=== PATIENT | male | born 1945 | race Caucasian/White ===

== ENCOUNTER 2017-01-26 14:20 | Emergency (ER) | payer OTHER, MEDICARE ==
[~2017-01-26] VITALS: Ht 177.8 cm; Wt 95.0 kg
[~2017-01-26 14:20] MED LIST: ALPR.25 PO; AMBI10TA PO; ASPI325T PO; BENA1TAB42 PO; CELE200C PO; HYDR-3535 PO; META800T81 PO; ROSU5 PO; VALT1TAB PO
[2017-01-26 14:31] VITALS: BP 171/92; PULSE 65; RESP 18; TEMP 98.2; O2SAT 97
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
[2017-01-26] MEDS ORDERED: BENA20TA4 PO (15:06)
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
== END 2017-01-26 16:46 | disposition home or self-care (01) ==
LOC: PHEFT 14:20
DX: S16.1XXA Strain of muscle, fascia and tendon at neck level, initial encounter (principal); Z95.9 Presence of cardiac and vascular implant and graft, unspecified; V43.52XA Car driver injured in collision with other type car in traffic accident, initial encounter; Y92.488 Other paved roadways as the place of occurrence of the external cause; Y93.9 Activity, unspecified; Y99.9 Unspecified external cause status; I10 Essential (primary) hypertension; E78.00 Pure hypercholesterolemia, unspecified
CPT/HCPCS: 72050; 99284

== ENCOUNTER 2018-05-19 11:59 | Inpatient (IN) ==
[2018-05-19 12:51] LABS: Baso % (Auto) 0.4 % (0.0-2.0); Eos % (Auto) 0.3 % (0.0-4.0); Hematocrit 38.9 % (39.0-51.0); Lymph % (Auto) 13.6 % (9.0-44.0); Mean Corpuscular HGB Conc 33.5 % (32.0-36.0); Mean Corpuscular Hemoglobin 31.5 pg (27.0-34.0); Mean Corpuscular Volume 94.1 fL (80.0-100.0); Mean Platelet Volume 6.1 fL (7.0-11.0); Mono # (Auto) 0.6 th/mm3 (0.0-0.9); Mono % (Auto) 8.1 % (0.0-8.0); Neut # (Auto) 5.5 th/mm3 (1.8-7.7); Neut % (Auto) 77.6 % (16.0-70.0); Platelet Count 363 th/mm3 (150-450); Red Blood Count 4.14 mil/mm3 (4.50-5.90); Red Cell Distribution Width 12.4 % (11.6-17.2); White Blood Count 7.1 th/mm3 (4.0-11.0)
[2018-05-19 12:56] LABS: ABG Base Excess 2.2 mmol/L (-2-2); ABG PCO2 44 mmHg (38-42); ABG PO2 82 mmHg (61-120)
[2018-05-19 13:02] LABS: Chloride 90 meq/L (98-107); Sodium 126 meq/L (136-145)
[2018-05-19 13:05] LABS: Albumin 3.4 g/dL (3.4-5.0); Anion Gap 6 meq/L (5-15); Calcium 8.3 mg/dL (8.5-10.1); Glucose,Random 197 mg/dL (74-106)
[2018-05-19 13:06] LABS: Blood Urea Nitrogen 8 mg/dL (7-18)
[2018-05-19 13:08] LABS: Alanine Aminotransferase 19 U/L (12-78); Aspartate Aminotransferase 11 U/L (15-37)
[2018-05-19 13:09] LABS: Glomerular Filtration Rate 76 mL/min (>89)
--- NOTE | 2018-05-19 13:09 | ED ---
HPI General Chief complaint: Medical Clearance Stated complaint: Brain scan/blood work sent by dr Salcido Time Seen by Provider: 05/19/18 12:25 Source: patient Mode of arrival: ambulatory Limitations: no limitations History of Present Illness HPI narrative: Is a 72-year-old male presents to the emergency department referred in from Dr. Salcido's office apparently for sleepiness and daytime somnolence and generalized weakness. Patient reports that he has been falling asleep easily, and very drowsy during the day, ongoing for couple weeks. Patient is on multiple sedating medications including 10 mg oxycodone 4 times per day, 0.25 mg Xanax 4 times per day, Skelaxin up to 3 times per day but he states he really only takes this in the evening and sometimes at night if he wakes up with pain, and Ambien which he takes most nights. No history of sleep apnea. states that he does sometimes gurgle in his sleep and she tells him the role records she is worried about his breathing, but no snoring or abrupt waking up or other similar symptoms. Patient denies any recent illness. No change in urination. No history of kidney problems. Was seen at the office today because he has been falling asleep so much and apparently fell asleep in the office and so Dr. Salcido sent him to the ED for evaluation. Related Data Home Medications Medication Instructions Recorded Confirmed alprazolam [Xanax] 0.25 mg PO QID 05/19/18 05/19/18 aspirin 81 mg PO DAILY 05/19/18 05/19/18 benazepril-hydrochlorothiazide 1 tab PO DAILY 05/19/18 05/19/18 celecoxib [Celebrex] 200 mg PO DAILY 05/19/18 05/19/18 duloxetine [Cymbalta] 60 mg PO DAILY 05/19/18 05/19/18 hydrocodone-acetaminophen 1 tab PO Q6H PRN 05/19/18 05/19/18 metaxalone [Skelaxin] 800 mg PO Q6HR PRN 05/19/18 05/19/18 rosuvastatin [Crestor] 5 mg PO HS 05/19/18 05/19/18 valacyclovir [Valtrex] 1,000 mg PO DAILY 05/19/18 05/19/18 zolpidem [Ambien] 10 mg PO HS 05/19/18 05/19/18 Allergies Allergy/AdvReac Type Severity Reaction Status Date / Time No Known Allergies Allergy Unverified 05/19/18 12:12 Review of Systems ROS Unobtainable All other systems reviewed negative except as stated in HPI [facility] Medical History Medical History Hx of malignant melanoma of skin (Acute) Depression (Acute) High cholesterol (Acute) Hypertension (Acute) Surgical History Surgical History Hx of prostatectomy (Acute) Hx of vascular surgery (Acute) Hx of cardiac cath (Acute) History of hernia surgery (Acute) History of back surgery (Acute) H/O heart artery stent (Acute) Social History Social History Substance History: No History of Abuse Second Hand Smoke Exposure: No Smoking Status: Former smoker How Often Do You Have a Drink Containing Alcohol: Never Recent Travel in [facility] within the Last 8 Weeks: No Recent Out of Country Travel within the Last 8 Weeks: No Immunization History Tetanus Immunization: Unsure Hx Influenza Vaccine This Season: Yes Exam Narrative Exam Narrative: GENERAL: This 72-year-old man, nontoxic, no acute distress. SKIN: Focused skin assessment warm/dry. HEAD: Atraumatic. Normocephalic. EYES: Pupils equal and round. No scleral icterus. No injection or drainage. ENT: No nasal bleeding or discharge. Mucous membranes pink and moist. NECK: Trachea midline. No JVD. CARDIOVASCULAR: Regular rate and rhythm. No murmur appreciated. RESPIRATORY: No accessory muscle use. Clear to auscultation. Breath sounds equal bilaterally. GASTROINTESTINAL: Abdomen soft, non-tender, nondistended. Hepatic and splenic margins not palpable. MUSCULOSKELETAL: No obvious deformities. No clubbing. No cyanosis. No edema. NEUROLOGICAL: Minimally sedated at this point. No obvious cranial nerve deficits. Motor grossly within normal limits. Normal speech. Course Initial Documented Vital Signs Temperature 98.4 F 05/19/18 12:12 Pulse Rate 93 H 05/19/18 12:12 Respiratory Rate 12 05/19/18 12:12 Blood Pressure 132/79 05/19/18 12:12 Pulse Oximetry 97 05/19/18 12:12 Last Documented Vital Signs Temperature 98.4 F 05/19/18 12:49 Pulse Rate 84 05/19/18 13:11 Respiratory Rate 16 05/19/18 12:49 Blood Pressure 132/79 05/19/18 12:49 Pulse Oximetry 98 05/19/18 13:11 Medical Decision Making MDM Narrative Medical decision making narrative: 72-year-old male presents emerged department with sedation and daytime somnolence. He really looks pretty well. My suspicion is this is multifactorial. I think his meds have to be contributing. Patient is reluctant to accept this as he been on the medication for quite some time and does not want to wean them down. Renal failure could contribute, anemia could contribute. Sleep apnea seems also very possible, may need further evaluation as an outpatient. Will check labs, thyroid, cell count, chemistries, discussed with Dr. Salcido. Lab Data Result diagrams: 05/19/18 12:40 05/19/18 12:40 Lab Results 05/19/18 05/19/18 05/19/18 Range/Units 12:40 12:40 12:40 CBC w Diff Auto diff final WBC 7.1 (4.0-11.0) th/mm3 RBC 4.14 L (4.50-5.90) mil/mm3 Hgb 13.0 (13.0-17.0) gm/dL Hct 38.9 L (39.0-51.0) % MCV 94.1 (80.0-100.0) fL MCH 31.5 (27.0-34.0) pg MCHC 33.5 (32.0-36.0) % RDW 12.4 (11.6-17.2) % Plt Count 363 (150-450) th/mm3 MPV 6.1 L (7.0-11.0) fL Neut % (Auto) 77.6 H (16.0-70.0) % Lymph % (Auto) 13.6 (9.0-44.0) % [place] % (Auto) 8.1 H (0.0-8.0) % Eos % (Auto) 0.3 (0.0-4.0) % Baso % (Auto) 0.4 (0.0-2.0) % Neut # (Auto) 5.5 (1.8-7.7) th/mm3 Lymph # (Auto) 1.0 (1.0-4.8) th/mm3 Izard # (Auto) 0.6 (0.0-0.9) th/mm3 Eos # (Auto) 0.0 (0.0-0.4) th/mm3 Baso # (Auto) 0.0 (0.0-0.2) th/mm3 WBC Differential . Differential Comment . Puncture Site Patient Temperature O2 Saturation (90-100) % ABG pH (7.380-7.420) ABG pCO2 (38-42) mmHg ABG pO2 (61-120) mmHg ABG HCO3 (22-26) mmol/L ABG O2 Content (12.0-20.0) Vol % ABG Base Excess (-2-2) mmol/L ABG Methemoglobin (0-2) % Grant Test Hemoglobin (12.0-16.0) G/DL Carboxyhemoglobin (0-4) % O2 Delivery Device Inspired O2 % Critical Value Sodium 126 L (136-145) meq/L Potassium 4.0 (3.5-5.1) meq/L Chloride 90 L (98-107) meq/L Carbon Dioxide 30.0 (21.0-32.0) meq/L Anion Gap 6 (5-15) meq/L BUN 8 (7-18) mg/dL Creatinine 0.97 (0.60-1.30) mg/dL Estimated GFR 76 L (>89) mL/min Random Glucose 197 H (74-106) mg/dL Calcium 8.3 L (8.5-10.1) mg/dL Total Bilirubin 0.3 (0.2-1.0) mg/dL AST 11 L (15-37) U/L ALT 19 (12-78) U/L Alkaline Phosphatase 60 (45-117) U/L Total Protein 6.5 (6.4-8.2) g/dL Albumin 3.4 (3.4-5.0) g/dL TSH 0.573 (0.358-3.740) uIU/mL Ur Collection Type Urine Color (Yellw/Straw) Urine Clarity (Clear) Urine pH (5.0-8.5) Ur Specific [place] (1.002-1.035) Urine Protein (Neg-Trace) mg/dL Urine Glucose (UA) (Negative) mg/dL Urine Ketones (Negative) mg/dL Urine Occult Blood (Negative) Urine Nitrate (Negative) Urine Bilirubin (Negative) Urine Urobilinogen (Less than 2) mg/dL Ur Leukocyte Esterase (Negative) Urine RBC (0-3) /hpf Ur Squamous Epith Cells (0-5) /hpf Ur Transition Epith Cell (None) /hpf Amorphous Sediment (None) /hpf Micro UA Comment Urine Culture Comments Urine Collection Time hours 05/19/18 05/19/18 Range/Units 12:50 13:17 CBC w Diff WBC (4.0-11.0) th/mm3 RBC (4.50-5.90) mil/mm3 Hgb (13.0-17.0) gm/dL Hct (39.0-51.0) % MCV (80.0-100.0) fL MCH (27.0-34.0) pg MCHC (32.0-36.0) % RDW (11.6-17.2) % Plt Count (150-450) th/mm3 MPV (7.0-11.0) fL Neut % (Auto) (16.0-70.0) % Lymph % (Auto) (9.0-44.0) % Izard % (Auto) (0.0-8.0) % Eos % (Auto) (0.0-4.0) % Baso % (Auto) (0.0-2.0) % Neut # (Auto) (1.8-7.7) th/mm3 Lymph # (Auto) (1.0-4.8) th/mm3 [place] # (Auto) (0.0-0.9) th/mm3 Eos # (Auto) (0.0-0.4) th/mm3 Baso # (Auto) (0.0-0.2) th/mm3 WBC Differential Differential Comment Puncture Site Right radial Patient Temperature 98.6 O2 Saturation 94 (90-100) % ABG pH 7.40 (7.380-7.420) ABG pCO2 44 H (38-42) mmHg ABG pO2 82 (61-120) mmHg ABG HCO3 27 H (22-26) mmol/L ABG O2 Content 16.7 (12.0-20.0) Vol % ABG Base Excess 2.2 H (-2-2) mmol/L ABG Methemoglobin 1.1 (0-2) % Grant Test Present Hemoglobin 12.6 (12.0-16.0) G/DL Carboxyhemoglobin 1.4 (0-4) % O2 Delivery Device Room air Inspired O2 21 % Critical Value No Sodium (136-145) meq/L Potassium (3.5-5.1) meq/L Chloride (98-107) meq/L Carbon Dioxide (21.0-32.0) meq/L Anion Gap (5-15) meq/L BUN (7-18) mg/dL Creatinine (0.60-1.30) mg/dL Estimated GFR (>89) mL/min Random Glucose (74-106) mg/dL Calcium (8.5-10.1) mg/dL Total Bilirubin (0.2-1.0) mg/dL AST (15-37) U/L ALT (12-78) U/L Alkaline Phosphatase (45-117) U/L Total Protein (6.4-8.2) g/dL Albumin (3.4-5.0) g/dL TSH (0.358-3.740) uIU/mL Ur Collection Type Clean catch Urine Color Yellow (Yellw/Straw) Urine Clarity Clear (Clear) Urine pH 6.5 (5.0-8.5) Ur Specific [place] Less/equal 1.005 (1.002-1.035) Urine Protein Negative (Neg-Trace) mg/dL Urine Glucose (UA) Negative (Negative) mg/dL Urine Ketones Negative (Negative) mg/dL Urine Occult Blood Trace (Negative) Urine Nitrate Negative (Negative) Urine Bilirubin Negative (Negative) Urine Urobilinogen 0.2 (Less than 2) mg/dL Ur Leukocyte Esterase Negative (Negative) Urine RBC 0-3 (0-3) /hpf Ur Squamous Epith Cells 0-5 (0-5) /hpf Ur Transition Epith Cell 1-5 H (None) /hpf Amorphous Sediment Few H (None) /hpf Micro UA Comment Culture not ind Urine Culture Comments Culture not ind Urine Collection Time 1317 hours Discharge Plan Discharge Disposition Patient Disposition: 30 Still Patient Physicians Team ED Provider: Adolfo Rosas Primary Care Provider: Andry Salcido Rxs /Orders / Referrals /Forms Prescriptions: No Action alprazolam [Xanax] 0.25 mg Tablet 0.25 mg PO QID RF: 0 aspirin 81 mg Tablet,Chewable 81 mg PO DAILY RF: 0 celecoxib [Celebrex] 200 mg Capsule 200 mg PO DAILY RF: 0 benazepril-hydrochlorothiazide 20-25 mg Tablet 1 tab PO DAILY RF: 0 rosuvastatin [Crestor] 5 mg Tablet 5 mg PO HS RF: 0 valacyclovir [Valtrex] 1 gram Tablet 1,000 mg PO DAILY RF: 0 hydrocodone-acetaminophen 10-325 mg Tablet 1 tab PO Q6H PRN (Reason: Muscle Pain) RF: 0 zolpidem [Ambien] 10 mg Tablet 10 mg PO HS RF: 0 metaxalone [Skelaxin] 800 mg Tablet 800 mg PO Q6HR PRN (Reason: Pain) RF: 0 duloxetine [Cymbalta] 60 mg Capsule,Delayed Release(Dr/Ec) 60 mg PO DAILY RF: 0 Discharge Interventions Interventions: Vital Signs Last Done: 05/19/18 12:25 Status ED Status: Ready for Discharge
[2018-05-19 13:10] LABS: Total Protein 6.5 g/dL (6.4-8.2)
[2018-05-19 13:11] LABS: Alkaline Phosphatase 60 U/L (45-117)
[2018-05-19 13:27] LABS: Bilirubin,Urine Negative (Negative); Clarity,Urine Clear (Clear); Color,Urine Yellow (Yellw/Straw); Glucose,Urine (UA) Negative (Negative); Leukocyte Esterase,Urine Negative (Negative); Nitrite,Urine Negative (Negative); PH,Urine 6.5 (5.0-8.5); Specific Gravity,Urine Less/Equal 1.005 (1.002-1.035); Urobilinogen,Urine 0.2 mg/dL (Less than 2)
[2018-05-19 13:38] LABS: Amorphous Sediment,Urine Few /hpf; Collection Time,Urine 1317 hours; RBC,Urine 0-3 /hpf (0-3); Squamous Epithelial Cell,Urine 0-5 /hpf (0-5)
[2018-05-19] MEDS ORDERED: Acetaminophen 325 MG Tablet PO PRN (15:39)
--- NOTE | 2018-05-19 16:05 | P.HP ---
History of Present Illness Primary Care Physician: Andry Salcido MD History of Present Illness: 72-year-old male with a history of coronary artery disease and multiple disc herniations. He presents following 2 days of constant hypersomnolence associated with a mild headache. He has had gradually worsening hypersomnolence for the last 2 weeks leading up to this point. 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 He states that he cut back on his pain medications recently due to the hypersomnolence. He reports that he had a non-traumatic fall in the shower 1-1/2 weeks ago. He had a traumatic fall one year ago. He did have a similar episode of fatigue when he had a urinary tract infection a few years ago , but on this current admission his urine reports is clean. His chronic pain management includes multiple steroid and lidocaine injections into the lower back on a monthly basis. Inpatient Certification: I certify that the inpatient services were ordered in accordance with Medicare regulations governing the order. This includes certification that hospital inpatient services are reasonable and necessary and in the case of services not specified as inpatient-only under 42 CFR 419.22(n), that they are appropriately provided as inpatient services in accordance to with the 2-midnight benchmark under 43 CFR 412.3(e) Estimated Total Length of Stay (Days): 3 Plans for Post Hospital Care: Home Review of Systems Constitutional: Reports headache(s), Reports lack of energy, Reports weakness, Denies chills, Denies fever(s), Denies malaise, Denies night sweats, Denies weight gain, Denies weight loss Eyes: Denies blind spots, Denies blurry vision, Denies bulging eyes, Denies change in vision, Denies double vision Ears, Nose, Mouth, and Throat: Reports headache(s), Denies difficulty swallowing , Denies dizziness, Denies sinus pain, Denies sinus pressure, Denies sore throat Cardiovascular: Denies chest pain, Denies fainting, Denies fast heart rate, Denies irregular heart rhythm, Denies leg swelling, Denies lightheadedness Respiratory: Reports snoring, Denies change in phlegm color, Denies chest congestion, Denies cough, Denies excessive phlegm production, Denies pain on inspiration, Denies shortness of breath, Denies shortness of breath with activity Gastrointestinal: Denies abdominal pain, Denies belching, Denies black, tarry stools, Denies bright, red blood in stools Genitourinary: Denies blood in urine, Denies decreased urination, Denies difficulty urinating Musculoskeletal: Reports back pain, Reports muscle weakness, Denies abnormal walking Skin/Breast: Denies acne, Denies bleeding lesions, Denies boil, Denies breast swelling, Denies breast skin changes, Denies breast pain, Denies breast lump, Denies change in breast shape, Denies change in hair, Denies change in skin color, Denies changing lesions, Denies dry skin, Denies excessive hair growth, Denies hair loss, Denies itching, Denies lesions, Denies nail changes, Denies new lesions, Denies nipple discharge, Denies non-healing lesions, Denies redness , Denies sensitivity to light, Denies rash, Denies skin pain, Denies skin ulcer , Denies sores, Denies stretch rogers, Denies unusual bruising, Denies wounds, Denies yellowing of the skin, Denies other Neurologic: Reports frequent falls, Denies abnormal hearing, Denies abnormal movements, Denies abnormal speech, Denies localized weakness, Denies loss of vision, Denies memory loss Psychiatric: Reports abnormal sleep pattern, Denies behavioral changes, Denies change in appetite, Denies confusion, Denies depression, Denies difficulty concentrating, Denies hopelessness, Denies irritability, Denies memory loss, Denies mood swings, Denies panic attacks Endocrine: Denies cold intolerance, Denies excessive sweating, Denies flushing, Denies heat intolerance, Denies increased hunger, Denies increased thirst, Denies increased urination, Denies rapid, pounding, or irregular heartbeat PMFSH - History History Provided By: Patient, Family Member - Medical History Medical History: Medical History (Last Updated 05/19/18 @ 13:06 by Gabbie Bryson RN) Hx of malignant melanoma of skin (Acute) Depression (Acute) High cholesterol (Acute) Hypertension (Acute) - Surgical History Surgical History: Surgical History (Last Updated 05/19/18 @ 13:43 by Florence Toledo RN) Hx of prostatectomy (Acute) Hx of vascular surgery (Acute) Hx of cardiac cath (Acute) History of hernia surgery (Acute) History of back surgery (Acute) H/O heart artery stent - Family History Family History: Family History (Last Updated 05/19/18 @ 15:59 by Dani Kasper MD) Other Family history of acute myocardial infarction - Tobacco History Second Hand Smoke Exposure: No Tobacco Use In Past 30 Days: No Smoking Status: Former smoker - Alcohol History How Often Do You Have a Drink Containing Alcohol: Never - Substance Use History Substance History: No History of Abuse - Travel History Recent Travel in the [place] Within the Last 8 Weeks: No Recent Travel Out of the Country Within the Last 8 Weeks: No - Immunization History Tetanus Immunization: Unsure Hx Influenza Vaccine This Season: Yes Medications and Allergies Active Medications: Active Medications Acetaminophen (Tylenol) 650 mg PO Q4H PRN PRN Reason: Temp > 100.4 Hydrocodone Bitart/Acetaminophen ([place] 10/325) 1 tab PO Q6H PRN PRN Reason: Muscle Pain Alprazolam (Xanax) 0.25 mg PO QID TI Enoxaparin Sodium (Lovenox Inj) 40 mg SQ Q24H TI Sodium Chloride (Ns Inj) 1,000 mls @ 75 mls/hr IV.CONT .[id number] [facility] Non-Formulary Medication (Benazepril-Hydrochlorothiazide [Benazepril- Hydrochlorothiazide]) 1 tab PO DAILY TI Ondansetron HCl (Zofran Inj) 4 mg IV.PUSH Q6H PRN PRN Reason: NAUSEA OR VOMITING Sennosides (Senokot) 17.2 mg PO Q12H PRN PRN Reason: Moderate Constipation Sodium Chloride (Ns Flush) 2 ml IV.FLUSH PRN PRN PRN Reason: FLUSH AFTER USING IV ACCESS Valacyclovir HCl (Valtrex) 1,000 mg PO DAILY TI Allergies Allergy/AdvReac Type Severity Reaction Status Date / Time No Known Allergies Allergy Unverified 05/19/18 12:12 Home Medications Medication Instructions Recorded Confirmed Type alprazolam [Xanax] 0.25 mg PO QID 05/19/18 05/19/18 History aspirin 81 mg PO DAILY 05/19/18 05/19/18 History benazepril-hydrochlorothiazide 1 tab PO DAILY 05/19/18 05/19/18 History celecoxib [Celebrex] 200 mg PO DAILY 05/19/18 05/19/18 History duloxetine [Cymbalta] 60 mg PO DAILY 05/19/18 05/19/18 History hydrocodone-acetaminophen 1 tab PO Q6H PRN 05/19/18 05/19/18 History metaxalone [Skelaxin] 800 mg PO Q6HR PRN 05/19/18 05/19/18 History rosuvastatin [Crestor] 5 mg PO HS 05/19/18 05/19/18 History valacyclovir [Valtrex] 1,000 mg PO DAILY 05/19/18 05/19/18 History zolpidem [Ambien] 10 mg PO HS 05/19/18 05/19/18 History Exam Vital signs: Vital Signs 05/19/18 12:12 05/19/18 12:25 05/19/18 12:49 Temperature 98.4 F 98.4 F Pulse Rate 93 H 93 H 93 H Respiratory Rate 12 18 16 Blood Pressure 132/79 146/82 H 132/79 Pulse Oximetry 97 99 98 05/19/18 13:11 05/19/18 15:50 Temperature Pulse Rate 84 Respiratory Rate Blood Pressure Pulse Oximetry 98 96 Intake & Output 05/18/18 05/19/18 05/19/18 18:59 06:59 18:59 Weight 90 kg Narrative: GENERAL: Alert and oriented 3, well-nourished, hypersomnolent SKIN: Warm and dry. HEAD: Atraumatic. Normocephalic. EYES: Pupils equal and round. No scleral icterus. No injection or drainage. ENT: No nasal bleeding or discharge. Mucous membranes pink and moist. NECK: Trachea midline. No JVD. CARDIOVASCULAR: Regular rate and rhythm. No murmurs RESPIRATORY: No accessory muscle use. Clear to auscultation. Breath sounds equal bilaterally. GASTROINTESTINAL: Abdomen soft, non-tender, nondistended. Hepatic and splenic margins not palpable. MUSCULOSKELETAL: Extremities without clubbing, cyanosis, or edema. No obvious deformities. Negative Homans sign NEUROLOGICAL: Awake and alert. No obvious cranial nerve deficits. Motor grossly within normal limits. Five out of 5 muscle strength in the arms and legs. Normal speech. PSYCHIATRIC: Appropriate mood and affect; insight and judgment normal. Results - Labs CBC & Chem 7: 05/19/18 12:40 05/19/18 12:40 Labs: Laboratory Results - last 24 hr 05/19/18 05/19/18 05/19/18 12:40 12:40 12:40 CBC w Diff Auto diff final WBC 7.1 RBC 4.14 L Hgb 13.0 Hct 38.9 L MCV 94.1 MCH 31.5 MCHC 33.5 RDW 12.4 Plt Count 363 MPV 6.1 L Neut % (Auto) 77.6 H Lymph % (Auto) 13.6 Barber % (Auto) 8.1 H Eos % (Auto) 0.3 Baso % (Auto) 0.4 Neut # (Auto) 5.5 Lymph # (Auto) 1.0 Barber # (Auto) 0.6 Eos # (Auto) 0.0 Baso # (Auto) 0.0 WBC Differential . Differential Comment . Puncture Site Patient Temperature O2 Saturation ABG pH ABG pCO2 ABG pO2 ABG HCO3 ABG O2 Content ABG Base Excess ABG Methemoglobin Grant Test Hemoglobin Carboxyhemoglobin O2 Delivery Device Inspired O2 Critical Value Sodium 126 L Potassium 4.0 Chloride 90 L Carbon Dioxide 30.0 Anion Gap 6 BUN 8 Creatinine 0.97 Estimated GFR 76 L Random Glucose 197 H Calcium 8.3 L Total Bilirubin 0.3 AST 11 L ALT 19 Alkaline Phosphatase 60 Total Protein 6.5 Albumin 3.4 TSH 0.573 Ur Collection Type Urine Color Urine Clarity Urine pH Ur Specific [place] Urine Protein Urine Glucose (UA) Urine Ketones Urine Occult Blood Urine Nitrate Urine Bilirubin Urine Urobilinogen Ur Leukocyte Esterase Urine RBC Ur Squamous Epith Cells Ur Transition Epith Cell Amorphous Sediment Micro UA Comment Urine Culture Comments Urine Collection Time 05/19/18 05/19/18 12:50 13:17 CBC w Diff WBC RBC Hgb Hct MCV MCH MCHC RDW Plt Count MPV Neut % (Auto) Lymph % (Auto) Barber % (Auto) Eos % (Auto) Baso % (Auto) Neut # (Auto) Lymph # (Auto) Barber # (Auto) Eos # (Auto) Baso # (Auto) WBC Differential Differential Comment Puncture Site Right radial Patient Temperature 98.6 O2 Saturation 94 ABG pH 7.40 ABG pCO2 44 H ABG pO2 82 ABG HCO3 27 H ABG O2 Content 16.7 ABG Base Excess 2.2 H ABG Methemoglobin 1.1 Grant Test Present Hemoglobin 12.6 Carboxyhemoglobin 1.4 O2 Delivery Device Room air Inspired O2 21 Critical Value No Sodium Potassium Chloride Carbon Dioxide Anion Gap BUN Creatinine Estimated GFR Random Glucose Calcium Total Bilirubin AST ALT Alkaline Phosphatase Total Protein Albumin TSH Ur Collection Type Clean catch Urine Color Yellow Urine Clarity Clear Urine pH 6.5 Ur Specific [place] Less/equal 1.005 Urine Protein Negative Urine Glucose (UA) Negative Urine Ketones Negative Urine Occult Blood Trace Urine Nitrate Negative Urine Bilirubin Negative Urine Urobilinogen 0.2 Ur Leukocyte Esterase Negative Urine RBC 0-3 Ur Squamous Epith Cells 0-5 Ur Transition Epith Cell 1-5 H Amorphous Sediment Few H Micro UA Comment Culture not ind Urine Culture Comments Culture not ind Urine Collection Time 1317 Caprini VTE Risk Assessment Caprini VTE Risk Assessment: Moderate/High Risk (score >= 2) Caprini Risk Assessment Model: Point Value = 1 Point Value = 2 Point Value = 3 Point Value = 5 Age 41-60 Minor surgery BMI > 25 kg/m2 Swollen legs Varicose veins or History of unexplained or recurrent spontaneous Oral contraceptives or hormone replacement Sepsis (< 1 month) Serious lung disease, including pneumonia (< 1 month) Abnormal pulmonary function Acute myocardial infarction Congestive heart failure (< 1 month) History of inflammatory bowel disease Medical patient at bed rest Age 61-74 Arthroscopic surgery Major open surgery (> 45 min) Laparoscopic surgery (> 45 min) Malignancy Confined to bed (> 72 hours) Immobilizing plaster cast Central venous access Age >= 75 History of VTE Family history of VTE Factor V Leiden Prothrombin [id number] Lupus anticoagulant Anticardiolipin antibodies Elevated serum homocysteine Heparin-induced thrombocytopenia Other congenital or acquired thrombophilia Stroke (< 1 month) Elective arthroplasty Hip, pelvis, or leg fracture Acute spinal cord injury (< 1 month) Prophylaxis Regimen: Total Risk Factor Score Risk Level Prophylaxis Regimen 0-1 Low Early ambulation 2 Moderate Order ONE of the following: *Sequential Compression Device (SCD) *Heparin 5000 units SQ BID 3-4 Higher Order ONE of the following medications: *Heparin 5000 units SQ TID *Enoxaparin/Lovenox 40 mg SQ daily (WT < 150 kg, CrCl > 30 mL/min) *Enoxaparin/Lovenox 30 mg SQ daily (WT < 150 kg, CrCl > 10-29 mL/min) *Enoxaparin/Lovenox 30 mg SQ BID (WT < 150 kg, CrCl > 30 mL/min) AND/OR *Sequential Compression Device (SCD) 5 or more Highest Order ONE of the following medications: *Heparin 5000 units SQ TID (Preferred with Epidurals) *Enoxaparin/Lovenox 40 mg SQ daily (WT < 150 kg, CrCl > 30 mL/min) *Enoxaparin/Lovenox 30 mg SQ daily (WT < 150 kg, CrCl > 10-29 mL/min) *Enoxaparin/Lovenox 30 mg SQ BID (WT < 150 kg, CrCl > 30 mL/min) AND *Sequential Compression Device (SCD) Assessment and Plan - Plan Hypersomnolence Etiology unclear, CT of the head pending to rule out subdural bleed given headache Urinalysis is clean Expanded lab work to include B12, testosterone, TSH, free cortisol Follow-up values Hyponatremia Patient has chronic borderline hyponatremia, but level of 126 is his lowest reported value Begin replacement with gentle IV fluids and recheck labs in a.m. If not improving consider nephrology consult Chronic back pain Patient reports having 10 disc herniations He reports no change to his medication doses in the last year h/o CAD Continue home antihypertensives DVT prophylaxis Lovenox
--- NOTE | 2018-05-19 17:03 | CT ---
EXAM DATE: 05/19/2018 4:40 PM EDT AGE/SEX: 72 years / Male INDICATIONS: Increased sleepiness and weakness. CLINICAL DATA: This is the patient's initial encounter. Patient reports that signs and symptoms have been present for 1 day and indicates a pain score of 0/10. MEDICAL/SURGICAL HISTORY: Cardiovascular disease. Hypertension. Melanoma . Cardiac stent. RADIATION DOSE: 60.36 CTDI (mGy) COMPARISON: No prior exams available for comparison. TECHNIQUE: CT of the head without contrast. Using automated exposure control and adjustment of the mA and/or kV according to patient size, radiation dose was kept as low as reasonably achievable to ob tain optimal diagnostic quality images. DICOM format image data is available electronically for revi ew and comparison. FINDINGS: Cerebrum: The ventricles are normal for age. No evidence of midline shift, mass lesion, hemorrhage or acute infarction. No extraaxial fluid collections are seen. Posterior Fossa: The cerebellum and brainstem are intact. The 4th ventricle is midline. The cerebe llopontine angle is unremarkable. Extracranial: The visualized portion of the orbits is intact. Skull: The calvaria is intact. No evidence of skull fracture. CONCLUSION: 1. Negative CT Head non contrast. 2. No evidence of acute infarct, hemorrhage, mass or edema. Electronically signed by: Levon Feldman MD 05/19/2018 5:02 PM EDT
[2018-05-19] MEDS: ALPRAZolam 0.25 MG Tablet PO SCH ×2 (17:49→20:03)
[2018-05-19] MEDS: Sod Chloride 0.9% Inj 1,000 ML IV.CONT SCH (17:49)
[2018-05-19] MEDS: Enoxaparin Inj 40 MG/0.4 ML Syringe SQ SCH (17:49)
[2018-05-20] MEDS: Sod Chloride 0.9% Inj 1,000 ML IV.CONT SCH ×2 (05:06→18:12)
[2018-05-20 06:41] LABS: Potassium 4.8 meq/L (3.5-5.1)
[2018-05-20 06:44] LABS: Hematocrit 34.9 % (39.0-51.0); Hemoglobin 12.3 gm/dL (13.0-17.0); Mean Corpuscular HGB Conc 35.1 % (32.0-36.0); Mean Corpuscular Hemoglobin 32.5 pg (27.0-34.0); Mean Corpuscular Volume 92.5 fL (80.0-100.0); Mean Platelet Volume 6.4 fL (7.0-11.0); Platelet Count 301 th/mm3 (150-450); Red Blood Count 3.78 mil/mm3 (4.50-5.90); Red Cell Distribution Width 12.4 % (11.6-17.2); White Blood Count 4.9 th/mm3 (4.0-11.0)
[2018-05-20 06:47] LABS: Calcium 8.4 mg/dL (8.5-10.1)
[2018-05-20 06:48] LABS: Carbon Dioxide 32.1 meq/L (21.0-32.0)
[2018-05-20] MEDS: valACYclovir 500 MG Tab PO SCH (08:55)
[2018-05-20] MEDS: Lisinopril 20 MG Tablet PO SCH (08:55)
[2018-05-20] MEDS: ALPRAZolam 0.25 MG Tablet PO SCH ×4 (08:57→21:52)
[2018-05-20] MEDS: hydroCHLOROthiazide 25 MG Tablet PO SCH (08:57)
[2018-05-20] MEDS ORDERED: Non-Formulary Drug (Benazepril-Hydrochlorothiazide [Benazepril-Hydrochlorothiazide] 1 TAB) PO SCH (09:00)
--- NOTE | 2018-05-20 17:27 | P.PN ---
Subjective Interval history: Patient remains hypersomnolent despite correction of sodium. He has essentially had no improvement of his symptoms. Physical Exam Vital signs: Vital Signs 05/19/18 19:11 05/19/18 19:13 05/19/18 20:00 Temperature 97.2 F L Pulse Rate 62 Respiratory Rate 16 20 Blood Pressure 149/85 H 152/71 H Pulse Oximetry 97 05/19/18 20:30 05/20/18 00:00 05/20/18 07:45 Temperature 96.2 F L 96.3 F L Pulse Rate 57 L 63 Respiratory Rate 20 18 Blood Pressure 117/60 188/88 H Pulse Oximetry 98 94 L 97 05/20/18 07:46 05/20/18 11:47 05/20/18 12:00 Temperature 98.1 F Pulse Rate 62 Respiratory Rate 15 18 Blood Pressure 172/77 H Pulse Oximetry 96 96 05/20/18 16:00 Temperature 98.0 F Pulse Rate 68 Respiratory Rate 18 Blood Pressure 124/70 Pulse Oximetry 99 Intake & Output 05/19/18 05/20/18 05/20/18 18:59 06:59 18:59 Intake Total 240 / 240 1120 / 1120 Output Total 450 / 450 300 / 300 Balance 240 / 240 670 / 670 -300 / -300 Weight 90.2 kg 90.3 kg Intake: IV 1000 / 1000 NS Inj 1,000 ML @ 75 mls/hr IV. 1000 / 1000 CONT .[id number] [facility] Rx#: [id number] Oral 240 / 240 120 / 120 Output: Urine 450 / 450 300 / 300 Other: # Voids 1 # Urine Diapers 2 Weight On Admission 90.2 kg Narrative: GENERAL: Hypersomnolent, falls asleep spontaneously, alert and oriented 3 when awake SKIN: Warm and dry. HEAD: Normocephalic. EYES: No scleral icterus. No injection or drainage. NECK: Supple, trachea midline. No JVD or lymphadenopathy. CARDIOVASCULAR: Regular rate and rhythm without murmurs, gallops, or rubs. RESPIRATORY: Breath sounds equal bilaterally. No accessory muscle use. GASTROINTESTINAL: Abdomen soft, non-tender, nondistended. MUSCULOSKELETAL: No cyanosis, or edema. BACK: Nontender without obvious deformity. No CVA tenderness. Results - Labs CBC & Chem 7: 05/20/18 05:15 05/20/18 05:15 Laboratory Results - last 24 hr 05/20/18 05/20/18 05/20/18 05:15 05:15 05:15 WBC 4.9 RBC 3.78 L Hgb 12.3 L Hct 34.9 L MCV 92.5 MCH 32.5 MCHC 35.1 RDW 12.4 Plt Count 301 MPV 6.4 L Sodium 132 L Potassium 4.8 D Chloride 95 L Carbon Dioxide 32.1 H Anion Gap 5 BUN 9 Creatinine 0.85 Estimated GFR 88 L Random Glucose 130 H Calcium 8.4 L Vitamin B12 298 TSH Cortisol 1.6 05/20/18 05:15 WBC RBC Hgb Hct MCV MCH MCHC RDW Plt Count MPV Sodium Potassium Chloride Carbon Dioxide Anion Gap BUN Creatinine Estimated GFR Random Glucose Calcium Vitamin B12 TSH 0.724 Cortisol Assessment and Plan - Plan Hypersomnolence Etiology unclear CT of the head shows no acute changes Urinalysis is clean, TSH is normal B12, testosterone, TSH, free cortisol are pending Neurology consulted to assist with workup for possible narcolepsy Hyponatremia Admitted with level of 126, overnight with IV fluids came to 132 Follow-up with a.m. labs Chronic back pain Patient reports having 10 disc herniations He reports no change to his medication doses in the last year h/o CAD Continue home antihypertensives DVT prophylaxis Lovenox
[2018-05-20] MEDS: Enoxaparin Inj 40 MG/0.4 ML Syringe SQ SCH (18:11)
[2018-05-20 21:31] LABS: Creatine Kinase 62 U/L (39-308)
[2018-05-21] MEDS: Ketorolac Inj 30 MG/ML (IVP) Vial IV.PUSH PRN ×2 (02:14→23:34)
[2018-05-21 06:35] LABS: Chloride 98 meq/L (98-107); Potassium 4.2 meq/L (3.5-5.1); Sodium 132 meq/L (136-145)
[2018-05-21 06:38] LABS: Calcium 8.1 mg/dL (8.5-10.1)
[2018-05-21 06:39] LABS: Anion Gap 3 meq/L (5-15); Blood Urea Nitrogen 13 mg/dL (7-18); Carbon Dioxide 31.4 meq/L (21.0-32.0); Glucose,Random 107 mg/dL (74-106)
[2018-05-21 06:42] LABS: Glomerular Filtration Rate Greater Than 89 mL/min (>89)
[2018-05-21] MEDS: Sod Chloride 0.9% Inj 1,000 ML IV.CONT SCH ×2 (06:46→21:23)
[2018-05-21] MEDS: valACYclovir 500 MG Tab PO SCH (08:25)
[2018-05-21] MEDS: Lisinopril 20 MG Tablet PO SCH (08:25)
[2018-05-21] MEDS: ALPRAZolam 0.25 MG Tablet PO SCH ×4 (08:26→21:18)
[2018-05-21] MEDS: hydroCHLOROthiazide 25 MG Tablet PO SCH (08:26)
--- NOTE | 2018-05-21 10:28 | P.PN ---
Subjective Interval history: Patient states he has had some increase in his energy overnight. He still feels a blanket of sleepiness over him, however, he has more willpower to fight it this morning. Physical Exam Vital signs: Vital Signs 05/20/18 11:47 05/20/18 12:00 05/20/18 16:00 Temperature 98.1 F 98.0 F Pulse Rate 62 68 Respiratory Rate 15 18 18 Blood Pressure 172/77 H 124/70 Pulse Oximetry 96 99 05/20/18 20:00 05/20/18 20:09 05/21/18 00:00 Temperature 97.8 F 97.1 F L Pulse Rate 77 63 Respiratory Rate 18 18 Blood Pressure 128/70 152/71 H Pulse Oximetry 97 97 96 05/21/18 08:00 Temperature 98.4 F Pulse Rate 61 Respiratory Rate 20 Blood Pressure 101/58 L Pulse Oximetry 95 Intake & Output 05/20/18 05/21/18 05/21/18 18:59 06:59 18:59 Intake Total 1920 / 1920 1320 / 1320 440 / 440 Output Total 300 / 300 900 / 900 400 / 400 Balance 1620 / 1620 420 / 420 40 / 40 Weight 90.3 kg Intake: IV 1000 / 1000 900 / 900 NS Inj 1,000 ML @ 75 mls/hr IV. 1000 / 1000 900 / 900 CONT .[id number] TI Rx#: [id number] Oral 920 / 920 420 / 420 240 / 240 Oral Supplement 200 / 200 Output: Urine 300 / 300 900 / 900 400 / 400 Other: # Voids 3 Date of Last Bowel Movement 05/20/18 # Bowel Movements 2 Narrative: GENERAL: Hypersomnolent, falls asleep spontaneously, alert and oriented 3 when awake SKIN: Warm and dry. HEAD: Normocephalic. EYES: No scleral icterus. No injection or drainage. NECK: Supple, trachea midline. No JVD or lymphadenopathy. CARDIOVASCULAR: Regular rate and rhythm without murmurs, gallops, or rubs. RESPIRATORY: Breath sounds equal bilaterally. No accessory muscle use. GASTROINTESTINAL: Abdomen soft, non-tender, nondistended. MUSCULOSKELETAL: No cyanosis, or edema. BACK: Nontender without obvious deformity. No CVA tenderness. Results - Labs CBC & Chem 7: 05/20/18 05:15 05/21/18 05:41 Laboratory Results - last 24 hr 05/20/18 05/20/18 05/20/18 05:15 05:15 21:00 ESR 9 Sodium Potassium Chloride Carbon Dioxide Anion Gap BUN Creatinine Estimated GFR Random Glucose Calcium Ammonia Total Creatine Kinase C-Reactive Protein Vitamin B12 298 Cortisol 1.6 05/20/18 05/20/18 05/21/18 21:00 21:00 05:41 ESR Sodium 132 L Potassium 4.2 Chloride 98 Carbon Dioxide 31.4 Anion Gap 3 L BUN 13 Creatinine 0.84 Estimated GFR Greater than 89 Random Glucose 107 H Calcium 8.1 L Ammonia Less than 10 L Total Creatine Kinase 62 C-Reactive Protein Less than 0.29 Vitamin B12 Cortisol Assessment and Plan - Plan Hypersomnolence Etiology unclear CT of the head shows no acute changes Urinalysis is clean, no laboratory or clinical signs of infection B12, TSH and cortisol are all within normal limits Ammonia level and C-reactive protein are within normal limits Patient denies any travel to [place] or [place] and total testosterone pending Consider C[employer]OR[employer] ASSISTANT sleep disorder Appreciate neurology consult Hyponatremia Stable at 132, near his baseline Follow-up with a.m. labs Chronic back pain Patient reports having 10 disc herniations He reports no change to his medication doses in the last year h/o CAD Continue home antihypertensives DVT prophylaxis Lovenox
--- NOTE | 2018-05-21 12:27 | P.CONNEU ---
History of Present Illness Service: Neurology Primary Care Provider: Andry Salcido MD History of Present Illness: 72-year-old gentleman admitted to the hospital for evaluation of subacute hypersomnolence. Past couple weeks been feeling more more tired in the past few days he has been falling asleep during conversation while eating. He readily wakes up. Been having a mild headache. He is noted to have hyponatremia. Denies any fever night sweats or chills any tremors hallucinations or any history of sleep apnea. He has never had a polysomnogram. No prior history of narcolepsy. No recent medication changes. Denies hypnagogic hypnopompic hallucinations, cataplexy RLS or any parasomnias. Patient's does notice him to have gurgling type sounds when he sleeps on his back but not on his side. TSH has been normal, cortisol level normal. Further thyroid studies are pending. No leukocytosis minimal anemia, afebrile. He has chronic back pain and did receive epidural steroid steroid injection a few weeks ago. Review of Systems All other systems reviewed negative except as stated in HPI PMFSH - History History Provided By: Patient, Family Member - Medical History Medical History: Medical History (Last Reviewed 05/20/18 @ 08:05 by Andry Heart) Hx of malignant melanoma of skin (Acute) Depression (Acute) High cholesterol (Acute) Hypertension (Acute) - Surgical History Surgical History: Surgical History (Last Reviewed 05/20/18 @ 08:05 by Andry Heart) Hx of prostatectomy (Acute) Hx of vascular surgery (Acute) Hx of cardiac cath (Acute) History of hernia surgery (Acute) History of back surgery (Acute) H/O heart artery stent - Family History Family History: Family History (Last Updated 05/19/18 @ 15:59 by Dani Kasper MD) Other Family history of acute myocardial infarction - Tobacco History Second Hand Smoke Exposure: No Tobacco Use In Past 30 Days: No Smoking Status: Former smoker - Alcohol History How Often Do You Have a Drink Containing Alcohol: Never - Substance Use History Substance History: No History of Abuse - Travel History Recent Travel in the [place] Within the Last 8 Weeks: No Recent Travel Out of the Country Within the Last 8 Weeks: No - Immunization History Tetanus Immunization: Unsure Hx Influenza Vaccine This Season: Yes Medications and Allergies Active Medications: Active Medications Acetaminophen (Tylenol) 650 mg PO Q4H PRN PRN Reason: Temp > 100.4 Last Admin: 05/20/18 18:12 Dose: 650 mg Hydrocodone Bitart/Acetaminophen (Leupp 10/325) 1 tab PO Q4H PRN PRN Reason: PAIN SCALE 6 TO 10 Last Admin: 05/21/18 08:31 Dose: 1 tab Alprazolam (Xanax) 0.25 mg PO QID [facility] Last Admin: 05/21/18 08:26 Dose: 0.25 mg Duloxetine HCl (Cymbalta) 20 mg PO DAILY [facility] Last Admin: 05/21/18 08:25 Dose: 20 mg Enoxaparin Sodium (Lovenox Inj) 40 mg SQ Q24H [facility] Last Admin: 05/20/18 18:11 Dose: 40 mg Hydrochlorothiazide (Hydrodiuril) 25 mg PO DAILY [facility] Last Admin: 05/21/18 08:26 Dose: 25 mg Sodium Chloride (Ns Inj) 1,000 mls @ 75 mls/hr IV.CONT .[id number] [facility] Last Admin: 05/21/18 06:46 Dose: 75 mls/hr Ketorolac Tromethamine (Toradol Inj) 15 mg IV.PUSH Q6H PRN PRN Reason: BREAKTHROUGH PAIN Stop: 05/25/18 12:00 Last Admin: 05/21/18 02:14 Dose: 15 mg Lisinopril (Prinivil) 20 mg PO DAILY [facility] Last Admin: 05/21/18 08:25 Dose: 20 mg Ondansetron HCl (Zofran Inj) 4 mg IV.PUSH Q6H PRN PRN Reason: NAUSEA OR VOMITING Sennosides (Senokot) 17.2 mg PO Q12H PRN PRN Reason: Moderate Constipation Sodium Chloride (Ns Flush) 2 ml IV.FLUSH PRN PRN PRN Reason: FLUSH AFTER USING IV ACCESS Valacyclovir HCl (Valtrex) 1,000 mg PO DAILY [facility] Last Admin: 05/21/18 08:25 Dose: 1,000 mg Allergies Allergy/AdvReac Type Severity Reaction Status Date / Time No Known Allergies Allergy Unverified 05/19/18 12:12 Home Medications Medication Instructions Recorded Confirmed Type alprazolam [Xanax] 0.25 mg PO QID 05/19/18 05/19/18 History aspirin 81 mg PO DAILY 05/19/18 05/19/18 History benazepril-hydrochlorothiazide 1 tab PO DAILY 05/19/18 05/19/18 History celecoxib [Celebrex] 200 mg PO DAILY 05/19/18 05/19/18 History duloxetine [Cymbalta] 60 mg PO DAILY 05/19/18 05/19/18 History hydrocodone-acetaminophen 1 tab PO Q6H PRN 05/19/18 05/19/18 History metaxalone [Skelaxin] 800 mg PO Q6HR PRN 05/19/18 05/19/18 History rosuvastatin [Crestor] 5 mg PO HS 05/19/18 05/19/18 History valacyclovir [Valtrex] 1,000 mg PO DAILY 05/19/18 05/19/18 History zolpidem [Ambien] 10 mg PO HS 05/19/18 05/19/18 History Exam Vital signs: Vital Signs 05/20/18 16:00 05/20/18 20:00 05/20/18 20:09 Temperature 98.0 F 97.8 F Pulse Rate 68 77 Respiratory Rate 18 18 Blood Pressure 124/70 128/70 Pulse Oximetry 99 97 97 05/21/18 00:00 05/21/18 08:00 Temperature 97.1 F L 98.4 F Pulse Rate 63 61 Respiratory Rate 18 20 Blood Pressure 152/71 H 101/58 L Pulse Oximetry 96 95 Intake & Output 05/20/18 05/21/18 05/21/18 18:59 06:59 18:59 Intake Total 1920 / 1920 1320 / 1320 440 / 440 Output Total 300 / 300 900 / 900 400 / 400 Balance 1620 / 1620 420 / 420 40 / 40 Weight 90.3 kg Intake: IV 1000 / 1000 900 / 900 NS Inj 1,000 ML @ 75 mls/hr IV. 1000 / 1000 900 / 900 CONT .[id number] [facility] Rx#: [id number] Oral 920 / 920 420 / 420 240 / 240 Oral Supplement 200 / 200 Output: Urine 300 / 300 900 / 900 400 / 400 Other: # Voids 3 Date of Last Bowel Movement 05/20/18 # Bowel Movements 2 - Constitutional no acute distress - Routine HEENT Exam Head: Present: normocephalic, atraumatic Eye: Present: EOMI, PERRL - Routine Neck Exam Present: supple, full ROM - Routine Cardiovascular Exam Present: RRR - Routine Abdominal Exam Present: soft - Routine Neurological Exam Present: alert, oriented X3, CN II-XII intact, normal reflexes, moving all extremities, normal tone, hearing grossly intact, normal speech Results - Labs CBC & Chem 7: 05/20/18 05:15 05/21/18 05:41 Labs: Laboratory Results - last 24 hr 05/20/18 05/20/18 05/20/18 21:00 21:00 21:00 ESR 9 Sodium Potassium Chloride Carbon Dioxide Anion Gap BUN Creatinine Estimated GFR Random Glucose Calcium Ammonia Less than 10 L Total Creatine Kinase 62 C-Reactive Protein Less than 0.29 05/21/18 05:41 ESR Sodium 132 L Potassium 4.2 Chloride 98 Carbon Dioxide 31.4 Anion Gap 3 L BUN 13 Creatinine 0.84 Estimated GFR Greater than 89 Random Glucose 107 H Calcium 8.1 L Ammonia Total Creatine Kinase C-Reactive Protein Review/Management - Diagnosis (1) Hypersomnolence Code(s): G47.10 - Hypersomnia, unspecified Status: Acute Current Visit: Yes (2) Lumbar spondylosis Code(s): M47.816 - Spondylosis without myelopathy or radiculopathy, lumbar region Status: Acute Current Visit: Yes (3) Depression Code(s): F32.9 - Major depressive disorder, single episode, unspecified Status : Acute Current Visit: Yes (4) Hypertension Code(s): I10 - Essential (primary) hypertension Status: Acute Current Visit : Yes - Review/Management Plan: Subacute hypersomnolence Etiology would include untreated sleep apnea with secondary sleepiness versus adult onset narcolepsy which may have an autoimmune etiology versus [employer] encephalitis causing his hyponatremia, hypersomnolence and mild headache Endocrine etiology being worked up at the medical service Recommendations MRI brain with and without contrast EEG Chest x-ray CSF studies if above are negative patient and would like to pursue that Blood and CSF studies for Orexin, hypocretin levels We will need outpatient sleep study at our office No driving
[2018-05-21] MEDS ORDERED: Gadodiamide PF Inj 287 MG/ML 20 ML Syringe (for RAD MRI) IVCONTRAST ONE (12:40)
--- NOTE | 2018-05-21 13:22 | MR ---
EXAM DATE: 05/21/2018 1:11 PM EDT AGE/SEX: 72 years / Male INDICATIONS: . Decreased level of consciousness. CLINICAL DATA: This is the patient's initial encounter. Patient reports that signs and symptoms have been present for 1 day and indicates a pain score of 0/10. MEDICAL/SURGICAL HISTORY: Carcinoma, prostatic. Cardiovascular disease. Spinal stenosis. Pros tatectomy. Fusion, cervical. COMPARISON: [facility], CT HEAD W/O CONTRAST, 05/19/2018. . TECHNIQUE: Multiplanar, multisequence examination of the brain was performed without and with 18 ml O mniscan (gadodiamide) contrast as a single exam dose. FINDINGS: Cerebrum: The ventricles are normal for age. No evidence of midline shift, mass lesion, hemorrhage or acute infarction. No extraaxial fluid collections are seen. The pituitary gland and suprasellar cistern are normal in configuration. White Matter: Scattered nonspecific areas of T2 prolongation in periventricular white matter bilater ally. Posterior Fossa: The cerebellum and brainstem are intact. The 4th ventricle is midline. The cerebel lopontine angle is unremarkable. The cerebellar tonsils are normal in position. Diffusion Imaging: No focal areas of restricted diffusion are seen. No evidence of acute infarction . Extracranial: Mucosal thickening in the inferior aspect of the left maxillary sinus. The visualized portions of the orbits are unremarkable. Post Contrast: No abnormal areas of parenchymal or dural enhancement. No evidence of blood-brain ba rrier breakdown. CONCLUSION: 1. No acute findings in the brain. No abnormal areas of enhancement. 2. Mild left maxillary sinus disease. Electronically signed by: Earl Figueroa MD 05/21/2018 1:21 PM EDT
--- NOTE | 2018-05-21 13:37 | XR ---
EXAM DATE: 05/21/2018 1:33 PM EDT AGE/SEX: 72 years / Male INDICATIONS: . Evaluate for cardiomegaly. Patient complains of lethargy, general weakness, and dyspn ea. CLINICAL DATA: This is the patient's initial encounter. Patient reports that signs and symptoms have been present for 4 - 6 days and indicates a pain score of 0/10. MEDICAL/SURGICAL HISTORY: . Carcinoma, prostatic. Cardiovascular disease. Spinal stenosis. . Prostatectomy. Fusion, cervical. COMPARISON: No prior exams available for comparison. FINDINGS: AP and lateral views of the chest demonstrate the lungs to be symmetrically aerated without evidence of mass, infiltrate or effusion. The cardiomediastinal contours are unremarkable. Osseous structure s are intact. CONCLUSION: No acute cardiopulmonary disease. Electronically signed by: Earl Figueroa MD 05/21/2018 1:35 PM EDT
--- NOTE | 2018-05-21 20:03 | MG ---
cc: Hayes Osborne MD, Mandeep MD EEG NUMBER POH1 1203 5-7 Hz theta, 20-50 microvolts. Good EEG variability reactivity. Fast frequency artifact in the frontal channels. Attenuation of background and some slowing in drowsy state. Myogenic artifact occurring frontotemporal regions. Photic stimulation reduced driving. Single lead EKG shows sinus rhythm with a lot of premature contractions. INTERPRETATION: Mild encephalopathy. Clinical correlation. MD RADHA Booth/ , 07:51 PM , 08:02 PM
[2018-05-22 06:26] LABS: Hematocrit 34.9 % (39.0-51.0); Hemoglobin 11.6 gm/dL (13.0-17.0); Mean Corpuscular HGB Conc 33.3 % (32.0-36.0); Mean Corpuscular Hemoglobin 31.2 pg (27.0-34.0); Mean Corpuscular Volume 93.6 fL (80.0-100.0); Mean Platelet Volume 6.2 fL (7.0-11.0); Platelet Count 323 th/mm3 (150-450); Red Blood Count 3.72 mil/mm3 (4.50-5.90); Red Cell Distribution Width 12.4 % (11.6-17.2); White Blood Count 4.5 th/mm3 (4.0-11.0)
[2018-05-22 06:35] LABS: Potassium 3.8 meq/L (3.5-5.1)
[2018-05-22 06:41] LABS: Calcium 8.1 mg/dL (8.5-10.1)
[2018-05-22 06:42] LABS: Carbon Dioxide 30.9 meq/L (21.0-32.0)
[2018-05-22] MEDS: valACYclovir 500 MG Tab PO SCH (08:46)
[2018-05-22] MEDS: hydroCHLOROthiazide 25 MG Tablet PO SCH (08:46)
[2018-05-22] MEDS: Lisinopril 20 MG Tablet PO SCH (08:46)
[2018-05-22] MEDS: ALPRAZolam 0.25 MG Tablet PO SCH ×4 (08:47→20:42)
--- NOTE | 2018-05-22 11:26 | P.PN ---
Subjective Interval history: Patient complains that he had a rough night last night. His back pain flared up. In the past he states he has had some success with addressing local flareups using a lidocaine patch. He has also been off of his NSAIDs for a few days so I have offered him a single dose of Solu-Medrol. He has ongoing workup pending from neurology to assist with finding [employer] causes for his narcolepsy. Physical Exam Vital signs: Vital Signs 05/21/18 12:00 05/21/18 16:00 05/21/18 18:04 Temperature 98.1 F 97.6 F Pulse Rate 72 58 L Respiratory Rate 19 20 Blood Pressure 126/73 180/81 H 163/81 H Pulse Oximetry 98 95 05/21/18 20:00 05/21/18 23:55 05/22/18 04:00 Temperature 96.3 F L 96.7 F L 96 F L Pulse Rate 71 67 54 L Respiratory Rate 20 20 20 Blood Pressure 160/85 H 166/86 H 180/94 H Pulse Oximetry 96 94 L 98 05/22/18 08:00 Temperature 96.8 F L Pulse Rate 63 Respiratory Rate 18 Blood Pressure 176/85 H Pulse Oximetry 96 Intake & Output 05/21/18 05/22/18 05/22/18 18:59 06:59 18:59 Intake Total 680 / 680 1200 / 1200 Output Total 400 / 400 1900 / 1900 Balance 280 / 280 -700 / -700 Intake: IV 1000 / 1000 NS Inj 1,000 ML @ 75 mls/hr IV. 1000 / 1000 CONT .[id number] [facility] Rx#: [id number] Oral 480 / 480 200 / 200 Oral Supplement 200 / 200 Output: Urine 400 / 400 1900 / 1900 Other: # Voids 1 1 Date of Last Bowel Movement 05/20/18 05/20/18 Narrative: GENERAL: Hypersomnolent, falls asleep spontaneously, alert and oriented 3 when awake SKIN: Warm and dry. HEAD: Normocephalic. EYES: No scleral icterus. No injection or drainage. NECK: Supple, trachea midline. No JVD or lymphadenopathy. CARDIOVASCULAR: Regular rate and rhythm without murmurs, gallops, or rubs. RESPIRATORY: Breath sounds equal bilaterally. No accessory muscle use. GASTROINTESTINAL: Abdomen soft, non-tender, nondistended. MUSCULOSKELETAL: No cyanosis, or edema. BACK: Nontender without obvious deformity. No CVA tenderness. Results - Labs CBC & Chem 7: 05/22/18 05:42 05/22/18 05:42 Laboratory Results - last 24 hr 05/22/18 05/22/18 05:42 05:42 WBC 4.5 RBC 3.72 L Hgb 11.6 L Hct 34.9 L MCV 93.6 MCH 31.2 MCHC 33.3 RDW 12.4 Plt Count 323 MPV 6.2 L Sodium 135 L Potassium 3.8 Chloride 98 Carbon Dioxide 30.9 Anion Gap 6 BUN 12 Creatinine 0.89 Estimated GFR 84 L Random Glucose 147 H Calcium 8.1 L - Imaging Impressions Chest X-Ray 05/21/18 00:00 CONCLUSION: No acute cardiopulmonary disease. Head MRI 05/21/18 12:22 CONCLUSION: 1. No acute findings in the brain. No abnormal areas of enhancement. 2. Mild left maxillary sinus disease. Assessment and Plan - Plan Hypersomnolence Etiology unclear CT of the head shows no acute changes Urinalysis is clean, no laboratory or clinical signs of infection B12, TSH and cortisol are all within normal limits Ammonia level and C-reactive protein are within normal limits Patient denies any travel to [place] or [place] and total testosterone pending Consider [employer] sleep disorder Appreciate neurology consult Hyponatremia Improving, 135 today Chronic back pain Patient reports having 10 disc herniations Flareup overnight, add lidocaine patch and single dose of Solu-Medrol h/o CAD Continue home antihypertensives DVT prophylaxis Lovenox
[2018-05-22] MEDS ORDERED: MethylPREDNISolone Sod Succinate Inj 125 MG/2 ML Vial IV.PUSH ONE (12:00)
[2018-05-22] MEDS: Lidocaine 5% Patch T-DERMAL SCH (12:28)
[2018-05-22] MEDS: Sod Chloride 0.9% Inj 1,000 ML IV.CONT SCH (13:31)
[2018-05-23] MEDS: Sod Chloride 0.9% Inj 1,000 ML IV.CONT SCH ×2 (00:33→12:50)
[2018-05-23] MEDS: Ketorolac Inj 30 MG/ML (IVP) Vial IV.PUSH PRN ×4 (06:50→22:24)
[2018-05-23 08:42] LABS: Prothrombin Time 9.7 sec (9.8-11.6)
[2018-05-23] MEDS: Lisinopril 20 MG Tablet PO SCH (08:58)
[2018-05-23] MEDS: hydroCHLOROthiazide 25 MG Tablet PO SCH (08:58)
[2018-05-23] MEDS: valACYclovir 500 MG Tab PO SCH (08:58)
[2018-05-23] MEDS: ALPRAZolam 0.25 MG Tablet PO SCH ×4 (09:00→20:03)
[2018-05-23] MEDS: Lidocaine 5% Patch T-DERMAL SCH ×2 (09:01→15:27)
--- NOTE | 2018-05-23 12:43 | P.RAD ---
Post Procedure Progress Note - Pre Procedure Diagnosis (1) Hypersomnolence - Post Procedure Diagnosis (1) Hypersomnolence - Procedure Information Procedure Date: 05/23/18 Supervising Radiologist: Earl Ca Jr, MD Estimated blood loss (mL): 0 Anesthesia: Local - Plan of Activity Patient to Unit: Nursing Unit Patient Condition: Good See PACS Report for procedural detail/treatment. Spinal Procedure Lumbar Puncture L4-L5 Fluid Removal (CCs): 11 Fluid Description: Clear Puncture Time: 12:13 Findings: Clear CSF obtained. Opening pressure: 19 cmH2O Plan: Supine for 2 hours
[2018-05-23 14:02] LABS: Lymphocytes, CSF 0 %; Neutrophils,CSF 0 %; RBC on Tube 1 2 /mm3; RBC on Tube 4 0 /mm3
--- NOTE | 2018-05-23 15:07 | IR ---
EXAM DATE: 05/23/2018 12:51 PM EDT AGE/SEX: 72 years / Male INDICATIONS: Patient with altered mental status in need of lumbar puncture for evaluation. CLINICAL DATA: This is the patient's initial encounter. Patient reports that signs and symptoms have been present for 4 - 6 days and indicates a pain score of 8/10. MEDICAL/SURGICAL HISTORY: Hypertension. Malignant melanoma of skin. Depression. High cholestero l. . Prostatectomy. Vascular surgery. Cardiac cath. Back surgery. Hernia surgery. Heart artery stent . COMPARISON: No prior exams available for comparison. FLUORO TIME (min): 0.81 IMAGE SERIES: 3 ACCESS SITE: L4-5 LUMBAR PUNCTURE TIME: 1213 hours FLUID: Total volume of 11 cc of clear fluid was removed. Fluid was sent to lab for ordered studies. Opening pressure 19 cm of water . . PROCEDURE: 1. Fluoroscopic guided lumbar puncture with opening pressure The risks, benefits and alternatives to the procedure were explained and verbal and written consent w as obtained. The site was prepped in sterile fashion. Full sterile technique was used, including ca p, mask, sterile gloves and gown and a large sterile sheet. Hand hygiene and 2% chlorhexidine and/or betadine/alcohol prep was utilized per protocol for cutaneous antisepsis. The skin and subcutaneous tissues were infiltrated with local anesthetic solution. With fluoroscopic guidance the lumbar thecal sac was punctured at the L4-L5 level. The fluid describ ed above was removed without difficulty. Opening pressure was measured at 19 cm of water. The patient tolerated the procedure well and there were no complications. CONCLUSION: 1. Uncomplicated fluoroscopically guided lumbar puncture. Electronically signed by: Earl Ca MD 05/23/2018 3:05 PM EDT
--- NOTE | 2018-05-23 15:09 | P.PN ---
Subjective Interval history: Patient states that he slept better overnight and feels more energetic this morning. He has been up for a total of 4 hours without nodding off. He is undergoing lumbar puncture today per neurology. Physical Exam Vital signs: Vital Signs 05/22/18 16:00 05/22/18 20:24 05/23/18 00:00 Temperature 97.7 F 97.1 F L 96.5 F L Pulse Rate 77 104 H 84 Respiratory Rate 18 18 18 Blood Pressure 143/82 H 179/91 H 178/94 H Pulse Oximetry 98 97 95 05/23/18 08:00 05/23/18 09:27 05/23/18 13:00 Temperature 96.5 F L Pulse Rate 69 Respiratory Rate 20 6 L Blood Pressure 174/94 H 193/90 H Pulse Oximetry 98 05/23/18 13:55 Temperature 96.8 F L Pulse Rate 79 Respiratory Rate 20 Blood Pressure 194/94 H Pulse Oximetry 97 Intake & Output 05/22/18 05/23/18 05/23/18 18:59 06:59 18:59 Intake Total 1000 / 1000 1000 / 1000 1000 / 1000 Output Total 850 / 850 1000 / 1000 Balance 150 / 150 0 / 0 1000 / 1000 Weight 90.3 kg Intake: IV 1000 / 1000 1000 / 1000 1000 / 1000 NS Inj 1,000 ML @ 75 mls/hr IV. 1000 / 1000 1000 / 1000 1000 / 1000 CONT .[id number] [facility] Rx#: [id number] Output: Urine 850 / 850 1000 / 1000 Other: Date of Last Bowel Movement 05/20/18 05/22/18 05/22/18 Narrative: GENERAL: Hypersomnolent, falls asleep spontaneously, alert and oriented 3 when awake SKIN: Warm and dry. HEAD: Normocephalic. EYES: No scleral icterus. No injection or drainage. NECK: Supple, trachea midline. No JVD or lymphadenopathy. CARDIOVASCULAR: Regular rate and rhythm without murmurs, gallops, or rubs. RESPIRATORY: Breath sounds equal bilaterally. No accessory muscle use. GASTROINTESTINAL: Abdomen soft, non-tender, nondistended. MUSCULOSKELETAL: No cyanosis, or edema. BACK: Nontender without obvious deformity. No CVA tenderness. Results - Labs CBC & Chem 7: 05/22/18 05:42 05/22/18 05:42 Laboratory Results - last 24 hr 05/23/18 05/23/18 08:24 12:13 PT 9.7 L INR 1.0 APTT 24.0 L CSF Volume (1) 2.8 CSF Supernat Color (1) Clear CSF Gross Blood (1) 0 CSF WBC (1) 0 CSF RBC (1) 2 H CSF Volume (2) 2.0 CSF Supernat Color (2) Clear CSF Gross Blood (2) 0 CSF Volume (3) 2.0 CSF Supernat Color (3) Clear CSF Gross Blood (3) 0 CSF Volume (4) 2.8 CSF Supernat Color (4) Clear CSF WBC (4) 0 CSF RBC (4) 0 CSF Neutrophils % 0 CSF Lymphocytes % 0 Microbiology 05/23/18 12:39 Lumbar Puncture Gram Stain - Final Assessment and Plan - Plan Hypersomnolence Etiology unclear CT of the head shows no acute changes Urinalysis is clean, B12, TSH and cortisol are all within normal limits Ammonia level and C-reactive protein are within normal limits Patient denies any travel to [place] or [place] and total testosterone within normal limits Lumbar puncture performed today, results pending Appreciate neurology consult Hyponatremia Stable Chronic back pain Patient reports having 10 disc herniations Lidocaine patch and Solu-Medrol assisted with pain, patient slept 4 hours overnight and felt refreshed in the morning h/o CAD Continue home antihypertensives DVT prophylaxis Lovenox
[2018-05-23] MEDS ORDERED: MethylPREDNISolone Sod Succinate Inj 125 MG/2 ML Vial IV.PUSH ONE (16:00)
[2018-05-24] MEDS: Ketorolac Inj 30 MG/ML (IVP) Vial IV.PUSH PRN ×2 (02:09→06:06)
[2018-05-24] MEDS: Sod Chloride 0.9% Inj 1,000 ML IV.CONT SCH (02:12)
[2018-05-24] MEDS: valACYclovir 500 MG Tab PO SCH (08:13)
[2018-05-24] MEDS: Lisinopril 20 MG Tablet PO SCH (08:13)
[2018-05-24] MEDS: hydroCHLOROthiazide 25 MG Tablet PO SCH (08:14)
[2018-05-24] MEDS: ALPRAZolam 0.25 MG Tablet PO SCH (08:17)
[2018-05-24] MEDS: Lidocaine 5% Patch T-DERMAL SCH (08:19)
--- NOTE | 2018-05-24 10:11 | P.DCO ---
- Physical Therapy Order: Evaluate and treat - Home Health Nursing Order: Medical education, Signs/symptoms of disease process (Draw BMP in ) - Certification I have seen patient Geovanny Koehler on 05/24/18. My clinical findings support the need for the requested home health care services because: Limited mobility due to disease progression, Deconditioned with increased weakness, High risk of falls I certify that my clinical findings support that this patient is homebound because: Unsteady gait/balance, Unsafe to leave home unassisted, Unable to use public transportation (Draw BMP in 1 week to monitor sodium and potassium levels)
--- NOTE | 2018-05-24 10:14 | P.DS ---
Date of admission: 05/19/18 14:38 Primary care physician: Andry Salcido MD Brief History from admission: 72-year-old male with a history of coronary artery disease and multiple disc herniations. He presents following 2 days of constant hypersomnolence associated with a mild headache. He has had gradually worsening hypersomnolence for the last 2 weeks leading up to this point. He reports that he has been on the same medications for his chronic back pain for the last 10 years without any significant dose change and absolutely no dose pattern changer the last year. He states that he cut back on his pain medications recently due to the hypersomnolence. He reports that he had a non-traumatic fall in the shower 1-1/2 weeks ago. He had a traumatic fall one year ago. He did have a similar episode of fatigue when he had a urinary tract infection a few years ago , but on this current admission his urine reports is clean. His chronic pain management includes multiple steroid and lidocaine injections into the lower back on a monthly basis. DS: Diagnosis - Discharge Diagnosis (1) Hypersomnolence Status: Acute (2) Lumbar spondylosis Status: Acute (3) Hypertension Status: Acute DS: Medications - Discharge Medications Prescriptions: lidocaine [Lidoderm] 1 patch TRANSDERMAL DAILY 30 Days #30 ea lisinopril 20 mg PO DAILY 30 Days #30 tab DS: Summary Hospital Course: 72-year-old male who presented 5 days ago with hypersomnolence. His physiological workup was negative. Neurology was consulted to assist with [employer] workup which has thus far also been negative. The underlying cause seems to be sleep disturbance due to inadequate pain control overnight. For the most part this is the patient's doing as he withhold medications to try to be a minimalist when it comes to treating his pain. His lack of sleep overnight over the last 2 months has added up and caused him to be hypersomnolent during the day. For the last 2 nights he was given a lidocaine patch with a dose of Solu-Medrol in the afternoon to address inflammatory pain in his back which has 10 disc herniations. Following these doses he was able to sleep greater than 4 hours straight and no longer is suffering from the narcolepsy that he presented with. He is instructed to follow-up with his primary care doctor to monitor for hyponatremia and. He is instructed to stop hydrochlorothiazide due to the effect of hyponatremia. He is instructed to follow-up with neurology to review outstanding laboratory tests for ongoing workup of [employer] causes of his narcolepsy. - Time Spent with Patient Total time spent providing and/or coordinating discharge services: - Quality: VTE Deep Vein Thrombosis/Pulmonary Embolism Present on Admission: No Exam Vital signs: Vital Signs 05/23/18 13:00 05/23/18 13:55 05/23/18 16:00 Temperature 96.8 F L 96.1 F L Pulse Rate 79 Respiratory Rate 20 20 Blood Pressure 193/90 H 194/94 H 189/91 H Pulse Oximetry 97 97 05/23/18 17:22 05/23/18 20:18 05/24/18 00:00 Temperature 97.6 F 97.3 F L Pulse Rate 84 66 Respiratory Rate 18 18 Blood Pressure 184/98 H 172/84 H 136/74 Pulse Oximetry 92 L 94 L 05/24/18 08:00 05/24/18 08:15 Temperature 97.1 F L Pulse Rate 92 H Respiratory Rate 16 20 Blood Pressure 157/84 H Pulse Oximetry 100 Intake & Output 05/23/18 05/24/18 05/24/18 18:59 06:59 18:59 Intake Total 1480 / 1480 1000 / 1000 Output Total 1200 / 1200 450 / 450 Balance 280 / 280 550 / 550 Weight 90.3 kg Intake: IV 1000 / 1000 1000 / 1000 NS Inj 1,000 ML @ 75 mls/hr IV. 1000 / 1000 1000 / 1000 CONT .[id number] TI Rx#: [id number] Oral 480 / 480 Output: Urine 1200 / 1200 450 / 450 Other: # Voids 1 Date of Last Bowel Movement 05/22/18 # Bowel Movements 1 2 Results Procedures completed during hospitalization: Lumbar puncture on 05/23/2018 Pending studies at discharge: Pending at discharge 05/23/18 Cytology [PTH] Stat Labs on day of discharge: Labs from last 24 hours 05/23/18 05/23/18 05/23/18 12:13 12:13 12:13 CSF Volume (1) CSF Supernat Color (1) CSF Gross Blood (1) CSF WBC (1) CSF RBC (1) CSF Volume (2) CSF Supernat Color (2) CSF Gross Blood (2) CSF Volume (3) CSF Supernat Color (3) CSF Gross Blood (3) CSF Volume (4) CSF Supernat Color (4) CSF WBC (4) CSF RBC (4) CSF Neutrophils % CSF Lymphocytes % CSF Glucose CSF Total Protein 137.4 H CSF Myelin Basic Protein Pending CSF Angiotensin Conv Enz CSF VDRL Pending CSF Lyme Disease DNA CSF Cryptococcus Ag CSF Herpes I DNA (PCR) CSF Herpes II DNA (PCR) CSF N.mening B/E.coli K1 CSF N.meningitidis A/Y Bacterial Ag Source Enterovirus Source Enterovirus RNA (PCR) H.influenzae Type B Ag N. meningitidis C/W 135 Group B Strep Antigen S. pneumoniae Antigen 05/23/18 05/23/18 05/23/18 12:13 12:13 12:13 CSF Volume (1) CSF Supernat Color (1) CSF Gross Blood (1) CSF WBC (1) CSF RBC (1) CSF Volume (2) CSF Supernat Color (2) CSF Gross Blood (2) CSF Volume (3) CSF Supernat Color (3) CSF Gross Blood (3) CSF Volume (4) CSF Supernat Color (4) CSF WBC (4) CSF RBC (4) CSF Neutrophils % CSF Lymphocytes % CSF Glucose 86 H CSF Total Protein CSF Myelin Basic Protein CSF Angiotensin Conv Enz CSF VDRL CSF Lyme Disease DNA Pending CSF Cryptococcus Ag CSF Herpes I DNA (PCR) Pending CSF Herpes II DNA (PCR) Pending CSF N.mening B/E.coli K1 CSF N.meningitidis A/Y Bacterial Ag Source Enterovirus Source Enterovirus RNA (PCR) H.influenzae Type B Ag N. meningitidis C/W 135 Group B Strep Antigen S. pneumoniae Antigen 05/23/18 05/23/18 05/23/18 12:13 12:13 12:13 CSF Volume (1) 2.8 CSF Supernat Color (1) Clear CSF Gross Blood (1) 0 CSF WBC (1) 0 CSF RBC (1) 2 H CSF Volume (2) 2.0 CSF Supernat Color (2) Clear CSF Gross Blood (2) 0 CSF Volume (3) 2.0 CSF Supernat Color (3) Clear CSF Gross Blood (3) 0 CSF Volume (4) 2.8 CSF Supernat Color (4) Clear CSF WBC (4) 0 CSF RBC (4) 0 CSF Neutrophils % 0 CSF Lymphocytes % 0 CSF Glucose CSF Total Protein CSF Myelin Basic Protein CSF Angiotensin Conv Enz Pending CSF VDRL CSF Lyme Disease DNA CSF Cryptococcus Ag Pending CSF Herpes I DNA (PCR) CSF Herpes II DNA (PCR) CSF N.mening B/E.coli K1 CSF N.meningitidis A/Y Bacterial Ag Source Enterovirus Source Enterovirus RNA (PCR) H.influenzae Type B Ag N. meningitidis C/W 135 Group B Strep Antigen S. pneumoniae Antigen 05/23/18 05/23/18 12:13 12:13 CSF Volume (1) CSF Supernat Color (1) CSF Gross Blood (1) CSF WBC (1) CSF RBC (1) CSF Volume (2) CSF Supernat Color (2) CSF Gross Blood (2) CSF Volume (3) CSF Supernat Color (3) CSF Gross Blood (3) CSF Volume (4) CSF Supernat Color (4) CSF WBC (4) CSF RBC (4) CSF Neutrophils % CSF Lymphocytes % CSF Glucose CSF Total Protein CSF Myelin Basic Protein CSF Angiotensin Conv Enz CSF VDRL CSF Lyme Disease DNA CSF Cryptococcus Ag CSF Herpes I DNA (PCR) CSF Herpes II DNA (PCR) CSF N.mening B/E.coli K1 Cancelled CSF N.meningitidis A/Y Cancelled Bacterial Ag Source Cancelled Enterovirus Source Pending Enterovirus RNA (PCR) Pending H.influenzae Type B Ag Cancelled N. meningitidis C/W 135 Cancelled Group B Strep Antigen Cancelled S. pneumoniae Antigen Cancelled Preliminary micro results at discharge 05/23/18 12:39 CSF Culture - Preliminary Lumbar Puncture No growth in 24 hours - Impressions ITS Impressions Head CT 05/19/18 00:00 CONCLUSION: 1. Negative CT Head non contrast. 2. No evidence of acute infarct, hemorrhage, mass or edema. Chest X-Ray 05/21/18 00:00 CONCLUSION: No acute cardiopulmonary disease. Head MRI 05/21/18 12:22 CONCLUSION: 1. No acute findings in the brain. No abnormal areas of enhancement. 2. Mild left maxillary sinus disease. Lumbar Puncture Fluoroscopy 05/23/18 12:28 CONCLUSION: 1. Uncomplicated fluoroscopically guided lumbar puncture. Discharge Plan - Discharge Disposition Patient Disposition: W/Home Health Service - Discharge Condition Condition: Good - Discharge Order Discharge Orders: Discharge Order (Routine); Ordered 05/24/18 Ordered By: Dani Kasper - Physicians Team Primary Care Provider: Andry Salcido Attending Provider: Dani Kasper Other Providers: [employer],Insurance ; Hayes Osborne MD
[2018-05-26 01:35] LABS: Enterovirus (PCR)Source CSF; Enterovirus RNA Qual (PCR) Negative (Negative)
== END 2018-05-24 11:43 | disposition home health service (06) ==
LOC: PHED 11:59 → PHEDA 14:38 → PH3 16:02
PROVIDERS: ADMIT Family Medicine; ATTEND Family Medicine